=== PATIENT | male | born 1985 | race Caucasian/White ===

== ENCOUNTER 2019-06-29 23:21 | Inpatient (IN) | payer OTHER ==
[2019-06-29 23:42] VITALS: BMI 24.2
--- NOTE | 2019-06-30 01:29 | HP ---
"COWS - Scale Resting Pulse: 0= [place] 80 or Below Sweatin=Flushed/Facial Moisture Restless Observation: 1= Difficult to Sit Still Pupil Size: 2= Moderately Dilated (Pupils = 4 mm) Bone or Joint Aches: 1= Mild Discomfort Runny Nose/ Eye Tearin= Runny Nose/Eyes GI Upset > 30mins: 1= Stomach Cramp Tremor Observation: 2= Slight Tremor Visible Yawning Observation: 0= None Anxiety or Irritability: 2=Irritable/Anxious Goose Flesh Skin: 0=Smooth Skin COWS Score: 13 CIWA Score - Admission Criteria [facility] Guidelines: Admission for Medically Managed Detox: Requires at least one of the followin. CIWA greater than 12 2. Seizures within the past 24 hours 3. Delirium tremens within the past 24 hours 4. Hallucinations within the past 24 hours 5. Acute intervention needed for co occurring medical disorder 6. Acute intervention needed for co occurring psychiatric disorder 7. Severe withdrawal that cannot be handled at a lower level of care (continued vomiting, continued diarrhea, abnormal vital signs) requiring intravenous medication and/or fluids 8. Admission ROS [facility] Chief Complaint: I'M HERE BECAUSE iI DON'T WANT TO USE ANY MORE DRUGS. Allergies/Adverse Reactions: Allergies Allergy/AdvReac Type Severity Reaction Status Date / Time No Known Allergies Allergy Verified 06/29/19 23:38 History of Present Illness: First admission for this 33 yo presents w/ opioid withdrawal seeking detox. UTox: + THC/FEN/MOP BEVERLY: 0.0 Denies seizures or overdose. Heroin use began at age 10. States has increased use and now using 14-15 bags/ IV x 1 years. No narcan kit. Marijuana use began at age 10. Uses every day. Nicotine use began at age 10. Smokes 1 PPD. Denies alcohol use. PMHX: Hepatitis C (no meds) MHHx: Depression and bipolar. States takes meds but unsure name. Non-compliant when uses drugs. Denies thoughts of harming self or others. SHx: Lives in a fci. Unemployed. Denies legal problems. Search Terms: Edy Garcia, 1985 Search Date: 06/30/2019 01:27:31 AM The Drug Utilization Report below displays all of the controlled substance prescriptions, if any, that your patient has filled in the last twelve months. The information displayed on this report is compiled from pharmacy submissions to the Department, and accurately reflects the information as submitted by the pharmacies. This report was requested by: Fay Lujan | Reference #: [id number] There are no results for the search terms that you entered. Exam Limitations: No Limitations - Ebola screening Have you traveled outside of the country in the last 21 days: No (N) Have you had contact with anyone from an Ebola affected area: No Have you been sick,other than usual withdrawal symptoms: No Do you have a fever: No - Review of Systems Constitutional: Chills EENT: reports: Nose Congestion Respiratory: reports: No Symptoms reported Cardiac: reports: No Symptoms Reported GI: reports: Nausea, Indigestion (Heart burn), Abdominal cramping : reports: No Symptoms Reported Musculoskeletal: reports: Back Pain (r/t withdrawal) Integumentary: reports: Lesions (States picks skin when uses drugs) Neuro: reports: Tremors Endocrine: reports: Increased Thirst Hematology: reports: No Symptoms Reported Psychiatric: reports: Mood/Affect Appropiate, Orientated x3, Agitated, Anxious, Depressed ( Denies thoughts of harming self or others.) Patient History - PPD History Previous Implant?: No PPD to be Administered?: Yes - Smoking Cessation Smoking history: Current every day smoker Have you smoked in the past 12 months: Yes Aproximately how many cigarettes per day: 20 Hx Chewing Tobacco Use: No Initiated information on smoking cessation: Yes 'Breaking Loose' booklet given: 06/30/19 - Substance & Tx. History Hx Alcohol Use: No Hx Substance Use: Yes Substance Use Type: Heroin, Marijuana Hx Substance Use Treatment: Yes (detox, rehab (in [place])) - Substances abused Heroin Substance route: Injection Frequency: Daily Amount used: 15 bags Age of first use: 10 Date of last use: 06/29/19 Admission Physical Exam BHS - Vital Signs Vital Signs: Vital Signs - 24 hr 06/29/19 06/30/19 23:36 00:55 Temperature 97.7 F 97.7 F Pulse Rate 76 76 Respiratory 16 16 Rate Blood Pressure 125/80 125/80 - Physical General Appearance: Yes: Nourished, Mild Distress, Tremorous (Mild tremors), Sweating (Increased facial moisture), Anxious HEENTM: Yes: EOMI, Hearing grossly Normal, Normocephalic, Normal Voice, STEPHANY ( Pupils = 4 mm), Pharynx Normal Respiratory: Yes: Lungs Clear (Pulse Ox = 97), Normal Breath Sounds, No Respiratory Distress Neck: Yes: No masses,lesions,Nodules, Supple Breast: Yes: Breast Exam Deferred Cardiology: Yes: Regular Rhythm, Regular Rate, S1, S2 Abdominal: Yes: Non Tender, Flat, Soft, Increased Bowel Sounds Genitourinary: Yes: Within Normal Limits Back: Yes: Normal Inspection Musculoskeletal: Yes: full range of Motion, Gait Steady Extremities: Yes: Normal Capillary Refill, Tremors 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 No increased warmth, swelling, or erythema.), Other (Scattered circular scratched lesions on arms and back) Lymphatic: Yes: Within Normal Limits - Diagnostic (1) Excoriation (skin-picking) disorder Current Visit: Yes Status: Chronic Comment: r/t opioid use (2) Opioid dependence with withdrawal Current Visit: Yes Status: Acute Comment: IVDU w/ track connor (3) Nicotine dependence, unspecified, uncomplicated Current Visit: Yes Status: Chronic Qualifiers: Nicotine product type: cigarettes Qualified Code(s): F17.210 - Nicotine dependence, cigarettes, uncomplicated (4) Cannabis dependence, uncomplicated Current Visit: Yes Status: Acute (5) History of hepatitis C Current Visit: Yes Status: Chronic Comment: untreated Cleared for Admission [facility] - Detox or Rehab [facility] Level of Care: Medically Managed Detox Regimen/Protocol: Methadone Claeared for Rehab Admission: No Breathalyzer - Breathalyzer Breathalyzer: 0 Urine Drug Screen - Test Device Lot number: [id number] Expiration date: 03/10/21 - Control Is test valid?: Yes - Results Drug screen NEGATIVE: No Urine drug screen results: THC-Marijuana, FEN-Fentanyl, MOP-Opiates Inpatient Rehab Admission - Rehab Decision to Admit Inpatient rehab admission?: No"
[2019-06-30] MEDS ORDERED: MAGNESIUM HYDROX 2400MG/30ML ORAL SUSPENSION 30 ML CUP PO PRN (02:00)
[2019-06-30] MEDS ORDERED: cloNIDine HCL 0.1 MG TABLET PO PRN (02:00)
[2019-06-30] MEDS ORDERED: NICOTINE POLACRILEX 2 MG GUM BUC PRN (02:00)
[2019-06-30] MEDS ORDERED: METHADONE HCL 10 MG TABLET (FOR DETOX USE ONLY) PO ONE (02:00)
[2019-06-30] MEDS ORDERED: MENTHOL/PHENOL 1 EACH UD MM PRN (02:00)
[2019-06-30] MEDS ORDERED: MAGNESIUM CITRATE 300 ML BOTTLE PO PRN (02:00)
[2019-06-30] MEDS ORDERED: ACETAMINOPHEN 325 MG TABLET (FP) PO PRN ×2 (02:00)
[2019-06-30] MEDS ORDERED: BISMUTH SUBSALICYLATE 524 MG/30 ML UD PO PRN (02:00)
[2019-06-30] MEDS ORDERED: MAG HYDROX/AL HYDROX/SIMETH 30 ML UNIT-DOSE CUP PO PRN (02:00)
[2019-06-30] MEDS ORDERED: IBUPROFEN 400 MG TABLET (FP) PO PRN (02:00)
[2019-06-30] MEDS ORDERED: BACITRACIN 15 GM TUBE TOPICAL OINTMENT TP PRN (02:14)
--- NOTE | 2019-06-30 09:39 | PN ---
BHS COWS - Scale Resting Pulse: 0= [place] 80 or Below Sweatin= Chills/Flushing Restless Observation: 0= Sits Still Pupil Size: 1= Pupils >than Normal Bone or Joint Aches: 1= Mild Discomfort Runny Nose/ Eye Tearin= Nasal Congestion GI Upset > 30mins: 0= None Tremor Observation of Outstretched Hands: 2= Slight Tremor Visible Yawning Observation: 1= 1-2x During Session Anxiety or Irritability: 2=Irritable/Anxious Goose Flesh Skin: 3=Piloerection COWS Score: 12 BHS Progress Note (SOAP) Subjective: 33 years old male admitted on 06/30/19 for opiate withdrawal sx management treated with methadone detox regimen limited Spanish prefers direct conversation with staff follow direction alert speech clearly coherently good eye contact Objective: 06/30/19 09:38 Vital Signs Temperature 98.8 F 06/30/19 09:13 Pulse Rate 70 06/30/19 09:13 Respiratory Rate 18 06/30/19 09:13 Blood Pressure 116/66 06/30/19 09:13 O2 Sat by Pulse Oximetry (%) 06/30/19 09:38 lab pending Assessment: 06/30/19 09:38 opiate withdrawal sx Plan: continue methadone detox regimen
[2019-06-30] MEDS ORDERED: METHADONE HCL 10 MG TABLET PO ONE (10:00)
[2019-06-30] MEDS: NICOTINE 21 MG/24 HOURS TOPICAL PATCH TD SCH (10:04)
[2019-06-30] MEDS: PRENATAL VITAMINS W/ FOLIC ACID TABLET (FP) PO SCH (10:04)
--- NOTE | 2019-06-30 10:37 | EKG ---
Test Reason : Blood Pressure : / mmHG Vent. Rate : 064 BPM Atrial Rate : 064 BPM P-R Int : 128 ms QRS Dur : 090 ms QT Int : 404 ms P-R-T Axes : 058 079 060 degrees QTc Int : 416 ms NORMAL SINUS RHYTHM POSSIBLE LEFT ATRIAL ENLARGEMENT EARLY REPOLARIZATION BORDERLINE ECG NO PREVIOUS ECGS AVAILABLE Confirmed by BEBETO DRISCOLL, YURY ([id number]) on 06/30/2019 10:36:48 AM Referred By: Abel Mejia Confirmed By:YURY TATE MD
--- NOTE | 2019-06-30 13:25 | CONSULT ---
[facility] Psychiatric Consult - Data Date of interview: 06/30/19 Admission source: [facility] Identifying data: First admission to [facility] for this 33 y/o [place] male self-referred for detoxification (ADA issues : heroin, cannabis, nicotine). Interviewed at [address] [place] [address]. 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 Substance Abuse History: Discussed with patient. Details in current [facility] as follows : Smoking history: Current every day smoker. Have you smoked in the past 12 months: Yes. Aproximately how many cigarettes per day: 20. Hx Chewing Tobacco Use: No. Initiated information on smoking cessation: Yes. 'Breaking Loose' booklet given: 06/30/19. - Substance & Tx. History. Hx Alcohol Use: No. Hx Substance Use: Yes. Substance Use Type: Heroin, Marijuana. Hx Substance Use Treatment: Yes (detox, rehab (in [place])). - Substances abused. Heroin. Substance route: Injection. Frequency: Daily. Amount used: 15 bags. Age of first use: 10. Date of last use: 06/29/19 Medical History: Hepatitis C. Psychiatric History: Patient endorses one psychiatric hospitalization ([facility]) in 2017. Diagnosed with Bipolar Disorder (self-report). Mr Garcia indicates that he has not been on psychotropic medications for months. " I just got an appointment to see a psychiatrist at [facility] on Friday (07/02/19). I have not taken medications for a while ". No recent OPD care. Patient report a remote history of suicide attempt (superficial cutting). Physical/Sexual Abuse/Trauma History: Patient denies. Additional Comment: Urine drug screen results: THC-Marijuana, FEN-Fentanyl, MOP- Opiates. Noted. Mental Status Exam - Mental Status Exam Alert and Oriented to: Time, Place, Person Cognitive Function: Good Patient Appearance: Well Groomed Mood: Nervous, Withdrawn Affect: Mood Congruent, Constricted Patient Behavior: Fatigued, Appropriate, Cooperative Speech Pattern: Clear (in english) Voice Loudness: Normal Thought Process: Goal Oriented Thought Disorder: Not Present Hallucinations: Denies Suicidal Ideation: Denies Homicidal Ideation: Denies Insight/Judgement: Poor Sleep: Well Appetite: Good Muscle strength/Tone: Normal Gait/Station: Normal Psychiatric Findings - Problem List ([place] 1, 2,3) (1) Opioid dependence with withdrawal Current Visit: Yes Status: Acute Comment: IVDU w/ track connor (2) Cannabis dependence, uncomplicated Current Visit: Yes Status: Chronic (3) Nicotine dependence, unspecified, uncomplicated Current Visit: Yes Status: Chronic Qualifiers: Nicotine product type: cigarettes Qualified Code(s): F17.210 - Nicotine dependence, cigarettes, uncomplicated (4) Substance induced mood disorder Current Visit: Yes Status: Chronic - Initial Treatment Plan Initial Treatment Plan: Psychoeducation. Sleep hygiene. Detoxification. Support. Observation.
[2019-06-30] MEDS: BACITRACIN 15 GM TUBE TOPICAL OINTMENT TP SCH ×2 (16:04→21:52)
[2019-06-30 21:24] LABS: EPI CELLS 1.9 /HPF (0-5/HPF); HYALINE CASTS 13 /lpf (0-8); URINE APPEARANCE CLEAR; URINE BACTERIA 2.7 /hpf (NEGATIVE); URINE BILIRUBIN NEGATIVE (NEGATIVE); URINE COLOR YELLOW; URINE GLUCOSE (UA) NEGATIVE (NEGATIVE); URINE KETONE NEGATIVE (NEGATIVE); URINE LEUK ESTERASE TRACE (NEGATIVE); URINE NITRITE NEGATIVE (NEGATIVE); URINE PROTEIN NEGATIVE (NEGATIVE); URINE RBC 0 /hpf (0-4); URINE UROBILINOGEN 0.2 mg/dL (0.2-1.0); URINE WBC 5 /hpf (0-5)
[2019-06-30] MEDS: THIAMINE HCL 100 MG TABLET (FP) PO SCH (21:52)
[2019-06-30] MEDS: clonazePAM 0.5 MG TABLET PO PRN (21:53)
[2019-06-30] MEDS: METHOCARBAMOL 500 MG TABLET PO PRN (21:54)
[2019-06-30] MEDS: MELATONIN 5 MG TABLETS PO PRN (21:54)
[2019-07-01] MEDS ORDERED: METHADONE HCL 10 MG TABLET (FOR DETOX USE ONLY) ONE (08:56)
[2019-07-01] MEDS ORDERED: METHADONE HCL 5 MG TABLET (FOR DETOX USE ONLY) ONE (08:57)
[2019-07-01 09:41] LABS: HEMATOCRIT 42.8 % (35.4-49); HEMOGLOBIN 14.7 GM/dL (11.7-16.9); MCH 31.7 pg (25.7-33.7); MCHC 34.4 g/dl (32.0-35.9); MEAN CELL VOLUME 92.3 fl (80-96); MEAN PLT VOLUME 9.1 fl (7.5-11.1); PLATELET COUNT 217 K/MM3 (134-434); RBC 4.64 M/mm3 (4.00-5.60); RDW 13.7 % (11.9-15.9); WHITE BLOOD COUNT 4.6 K/mm3 (4.0-10.0)
[2019-07-01 09:58] LABS: BILIRUBIN,TOTAL 0.8 mg/dL (0.2-1); BLOOD UREA NITROGEN 9.5 mg/dL (7-18); CALCIUM 8.9 mg/dL (8.5-10.1); POTASSIUM 4.3 mmol/L (3.5-5.1); TOT PROT 7.5 g/dl (6.4-8.2)
[2019-07-01] MEDS ORDERED: METHADONE (DETOX) 20 MG, METHADONE (DETOX) 5 MG PO ONE (10:00)
[2019-07-01] MEDS: BACITRACIN 15 GM TUBE TOPICAL OINTMENT TP SCH ×2 (10:03→22:01)
[2019-07-01] MEDS: PRENATAL VITAMINS W/ FOLIC ACID TABLET (FP) PO SCH (10:03)
[2019-07-01] MEDS: NICOTINE 21 MG/24 HOURS TOPICAL PATCH TD SCH (10:05)
--- NOTE | 2019-07-01 10:51 | PN ---
BHS COWS - Scale Resting Pulse: 0= [place] 80 or Below Sweatin= Chills/Flushing Restless Observation: 0= Sits Still Pupil Size: 1= Pupils >than Normal Bone or Joint Aches: 1= Mild Discomfort Runny Nose/ Eye Tearin= None GI Upset > 30mins: 1= Stomach Cramp Tremor Observation of Outstretched Hands: 1= Tremor [place], Not Seen Yawning Observation: 1= 1-2x During Session Anxiety or Irritability: 2=Irritable/Anxious Goose Flesh Skin: 3=Piloerection COWS Score: 11 S Progress Note (SOAP) Subjective: 33 years old male admitted on06/30/19 for opiate withdrawal sx management treated with methadone detox regimen ate breakfast tolerated food and fluid well no trouble chewing swallowing food or liquid Objective: 07/01/19 10:48 Vital Signs Temperature 97.7 F 07/01/19 09:08 Pulse Rate 64 07/01/19 09:08 Respiratory Rate 18 07/01/19 09:08 Blood Pressure 110/71 07/01/19 09:08 O2 Sat by Pulse Oximetry (%) Laboratory Last Values WBC 4.6 K/mm3 (4.0-10.0) 07/01/19 07:40 RBC 4.64 M/mm3 (4.00-5.60) 07/01/19 07:40 Hgb 14.7 GM/dL (11.7-16.9) 07/01/19 07:40 Hct 42.8 % (35.4-49) 07/01/19 07:40 MCV 92.3 fl (80-96) 07/01/19 07:40 MCH 31.7 pg (25.7-33.7) 07/01/19 07:40 MCHC 34.4 g/dl (32.0-35.9) 07/01/19 07:40 RDW 13.7 % (11.9-15.9) 07/01/19 07:40 Plt Count 217 K/MM3 (134-434) 07/01/19 07:40 MPV 9.1 fl (7.5-11.1) 07/01/19 07:40 Sodium 138 mmol/L (136-145) 07/01/19 07:40 Potassium 4.3 mmol/L (3.5-5.1) 07/01/19 07:40 Chloride 104 mmol/L (98-107) 07/01/19 07:40 Carbon Dioxide 31 mmol/L (21-32) 07/01/19 07:40 Anion Gap 3 MMOL/L (8-16) L 07/01/19 07:40 BUN 9.5 mg/dL (7-18) 07/01/19 07:40 Creatinine 1.0 mg/dL (0.55-1.3) 07/01/19 07:40 Est GFR (CKD-EPI)AfAm 112.51 07/01/19 07:40 Est GFR (CKD-EPI)NonAf 97.08 07/01/19 07:40 Random Glucose 89 mg/dL (74-106) 07/01/19 07:40 Calcium 8.9 mg/dL (8.5-10.1) 07/01/19 07:40 Total Bilirubin 0.8 mg/dL (0.2-1) 07/01/19 07:40 AST 127 U/L (15-37) H 07/01/19 07:40 ALT 302 U/L (13-61) H 07/01/19 07:40 Alkaline Phosphatase 96 U/L (45-117) 07/01/19 07:40 Total Protein 7.5 g/dl (6.4-8.2) 07/01/19 07:40 Albumin 4.0 g/dl (3.4-5.0) 07/01/19 07:40 Urine Color Yellow 06/30/19 21:10 Urine Appearance Clear 06/30/19 21:10 Urine pH 8.0 (5.0-8.0) 06/30/19 21:10 Ur Specific [place] 1.017 (1.010-1.035) 06/30/19 21:10 Urine Protein Negative (NEGATIVE) 06/30/19 21:10 Urine Glucose (UA) Negative (NEGATIVE) 06/30/19 21:10 Urine Ketones Negative (NEGATIVE) 06/30/19 21:10 Urine Blood Negative (NEGATIVE) 06/30/19 21:10 Urine Nitrite Negative (NEGATIVE) 06/30/19 21:10 Urine Bilirubin Negative (NEGATIVE) 06/30/19 21:10 Urine Urobilinogen 0.2 mg/dL (0.2-1.0) 06/30/19 21:10 Ur Leukocyte Esterase Trace (NEGATIVE) 06/30/19 21:10 Urine WBC (Auto) 5 /hpf (0-5) 06/30/19 21:10 Urine RBC (Auto) 0 /hpf (0-4) 06/30/19 21:10 Urine Casts (Auto) 13 /lpf (0-8) 06/30/19 21:10 U Epithel Cells (Auto) 1.9 /HPF (0-5/HPF) 06/30/19 21:10 Urine Bacteria (Auto) 2.7 /hpf (NEGATIVE) 06/30/19 21:10 lab noted Assessment: 07/01/19 10:50 opiate withdrawal sx Plan: continue methadone detox regimen
[2019-07-01] MEDS: THIAMINE HCL 100 MG TABLET (FP) PO SCH (22:02)
[2019-07-01] MEDS: MELATONIN 5 MG TABLETS PO PRN (22:03)
[2019-07-01] MEDS: clonazePAM 0.5 MG TABLET PO PRN (22:03)
[2019-07-01] MEDS: METHOCARBAMOL 500 MG TABLET PO PRN (22:03)
[2019-07-02] MEDS: NICOTINE 21 MG/24 HOURS TOPICAL PATCH TD SCH (09:26)
[2019-07-02] MEDS: PRENATAL VITAMINS W/ FOLIC ACID TABLET (FP) PO SCH (09:27)
[2019-07-02] MEDS: clonazePAM 0.5 MG TABLET PO PRN (09:27)
[2019-07-02] MEDS: BACITRACIN 15 GM TUBE TOPICAL OINTMENT TP SCH ×2 (09:27→22:14)
[2019-07-02] MEDS ORDERED: METHADONE HCL 10 MG TABLET (FOR DETOX USE ONLY) PO ONE (10:00)
--- NOTE | 2019-07-02 12:53 | PN ---
S COWS - Scale Resting Pulse: 0= [place] 80 or Below Sweatin= No chills or Flushing Restless Observation: 1= Difficult to Sit Still Pupil Size: 1= Pupils >than Normal Bone or Joint Aches: 1= Mild Discomfort Runny Nose/ Eye Tearin= Runny Nose/Eyes GI Upset > 30mins: 1= Stomach Cramp Tremor Observation of Outstretched Hands: 1= Tremor [place], Not Seen Yawning Observation: 0= None Anxiety or Irritability: 2=Irritable/Anxious Goose Flesh Skin: 0=Smooth Skin COWS Score: 9 BHS Progress Note (SOAP) Subjective: alert,irritable,anxious,interrupted sleep,tremor,pain in the body Objective: 07/02/19 12:51 Vital Signs Temperature 98.2 F 07/02/19 09:21 Pulse Rate 73 07/02/19 09:21 Respiratory Rate 18 07/02/19 09:21 Blood Pressure 115/74 07/02/19 09:21 O2 Sat by Pulse Oximetry (%) 07/02/19 12:52 Laboratory Last Values WBC 4.6 K/mm3 (4.0-10.0) 07/01/19 07:40 RBC 4.64 M/mm3 (4.00-5.60) 07/01/19 07:40 Hgb 14.7 GM/dL (11.7-16.9) 07/01/19 07:40 Hct 42.8 % (35.4-49) 07/01/19 07:40 MCV 92.3 fl (80-96) 07/01/19 07:40 MCH 31.7 pg (25.7-33.7) 07/01/19 07:40 MCHC 34.4 g/dl (32.0-35.9) 07/01/19 07:40 RDW 13.7 % (11.9-15.9) 07/01/19 07:40 Plt Count 217 K/MM3 (134-434) 07/01/19 07:40 MPV 9.1 fl (7.5-11.1) 07/01/19 07:40 Sodium 138 mmol/L (136-145) 07/01/19 07:40 Potassium 4.3 mmol/L (3.5-5.1) 07/01/19 07:40 Chloride 104 mmol/L (98-107) 07/01/19 07:40 Carbon Dioxide 31 mmol/L (21-32) 07/01/19 07:40 Anion Gap 3 MMOL/L (8-16) L 07/01/19 07:40 BUN 9.5 mg/dL (7-18) 07/01/19 07:40 Creatinine 1.0 mg/dL (0.55-1.3) 07/01/19 07:40 Est GFR (CKD-EPI)AfAm 112.51 07/01/19 07:40 Est GFR (CKD-EPI)NonAf 97.08 07/01/19 07:40 Random Glucose 89 mg/dL (74-106) 07/01/19 07:40 Calcium 8.9 mg/dL (8.5-10.1) 07/01/19 07:40 Total Bilirubin 0.8 mg/dL (0.2-1) 07/01/19 07:40 AST 127 U/L (15-37) H 07/01/19 07:40 ALT 302 U/L (13-61) H 07/01/19 07:40 Alkaline Phosphatase 96 U/L (45-117) 07/01/19 07:40 Total Protein 7.5 g/dl (6.4-8.2) 07/01/19 07:40 Albumin 4.0 g/dl (3.4-5.0) 07/01/19 07:40 Urine Color Yellow 06/30/19 21:10 Urine Appearance Clear 06/30/19 21:10 Urine pH 8.0 (5.0-8.0) 06/30/19 21:10 Ur Specific [place] 1.017 (1.010-1.035) 06/30/19 21:10 Urine Protein Negative (NEGATIVE) 06/30/19 21:10 Urine Glucose (UA) Negative (NEGATIVE) 06/30/19 21:10 Urine Ketones Negative (NEGATIVE) 06/30/19 21:10 Urine Blood Negative (NEGATIVE) 06/30/19 21:10 Urine Nitrite Negative (NEGATIVE) 06/30/19 21:10 Urine Bilirubin Negative (NEGATIVE) 06/30/19 21:10 Urine Urobilinogen 0.2 mg/dL (0.2-1.0) 06/30/19 21:10 Ur Leukocyte Esterase Trace (NEGATIVE) 06/30/19 21:10 Urine WBC (Auto) 5 /hpf (0-5) 06/30/19 21:10 Urine RBC (Auto) 0 /hpf (0-4) 06/30/19 21:10 Urine Casts (Auto) 13 /lpf (0-8) 06/30/19 21:10 U Epithel Cells (Auto) 1.9 /HPF (0-5/HPF) 06/30/19 21:10 Urine Bacteria (Auto) 2.7 /hpf (NEGATIVE) 06/30/19 21:10 RPR Titer Nonreactive (NONREACTIVE) 07/01/19 07:40 Assessment: 07/02/19 12:52 withdrawal symptom Plan: continue detox,repeat alt,ast,inr in am/d/c tylenol
[2019-07-02] MEDS: THIAMINE HCL 100 MG TABLET (FP) PO SCH (22:13)
[2019-07-03 09:27] VITALS: BP 118/83; PULSE 71; TEMP 97.9
[2019-07-03] MEDS ORDERED: METHADONE HCL 10 MG TABLET (FOR DETOX USE ONLY) ONE (09:35)
[2019-07-03] MEDS ORDERED: METHADONE HCL 5 MG TABLET (FOR DETOX USE ONLY) ONE (09:36)
[2019-07-03] MEDS ORDERED: METHADONE (DETOX) 10 MG, METHADONE (DETOX) 5 MG PO ONE (10:00)
[2019-07-03] MEDS: NICOTINE 21 MG/24 HOURS TOPICAL PATCH TD SCH (10:18)
[2019-07-03] MEDS: BACITRACIN 15 GM TUBE TOPICAL OINTMENT TP SCH (10:18)
[2019-07-03] MEDS: PRENATAL VITAMINS W/ FOLIC ACID TABLET (FP) PO SCH (10:18)
--- NOTE | 2019-07-03 10:44 | PN ---
BHS COWS - Scale Resting Pulse: 0= [place] 80 or Below Sweatin= Chills/Flushing Restless Observation: 1= Difficult to Sit Still Pupil Size: 0= Normal to Room Light Bone or Joint Aches: 2= Severe Diffuse Aches Runny Nose/ Eye Tearin= None GI Upset > 30mins: 0= None Tremor Observation of Outstretched Hands: 0= None Yawning Observation: 1= 1-2x During Session Anxiety or Irritability: 1=Feels Anxious/Irritable Goose Flesh Skin: 0=Smooth Skin COWS Score: 6 BHS Progress Note (SOAP) Subjective: c/o sweats, muscle aches, and anxiety. Objective: 07/03/19 10:43 Lab Results WBC 4.6 K/mm3 (4.0-10.0) 07/01/19 07:40 RBC 4.64 M/mm3 (4.00-5.60) 07/01/19 07:40 Hgb 14.7 GM/dL (11.7-16.9) 07/01/19 07:40 Hct 42.8 % (35.4-49) 07/01/19 07:40 MCV 92.3 fl (80-96) 07/01/19 07:40 MCHC 34.4 g/dl (32.0-35.9) 07/01/19 07:40 RDW 13.7 % (11.9-15.9) 07/01/19 07:40 Plt Count 217 K/MM3 (134-434) 07/01/19 07:40 Sodium 138 mmol/L (136-145) 07/01/19 07:40 Potassium 4.3 mmol/L (3.5-5.1) 07/01/19 07:40 Chloride 104 mmol/L (98-107) 07/01/19 07:40 Carbon Dioxide 31 mmol/L (21-32) 07/01/19 07:40 Anion Gap 3 MMOL/L (8-16) L 07/01/19 07:40 BUN 9.5 mg/dL (7-18) 07/01/19 07:40 Creatinine 1.0 mg/dL (0.55-1.3) 07/01/19 07:40 Random Glucose 89 mg/dL (74-106) 07/01/19 07:40 Calcium 8.9 mg/dL (8.5-10.1) 07/01/19 07:40 Laboratory Last Values WBC 4.6 K/mm3 (4.0-10.0) 07/01/19 07:40 RBC 4.64 M/mm3 (4.00-5.60) 07/01/19 07:40 Hgb 14.7 GM/dL (11.7-16.9) 07/01/19 07:40 Hct 42.8 % (35.4-49) 07/01/19 07:40 MCV 92.3 fl (80-96) 07/01/19 07:40 MCH 31.7 pg (25.7-33.7) 07/01/19 07:40 MCHC 34.4 g/dl (32.0-35.9) 07/01/19 07:40 RDW 13.7 % (11.9-15.9) 07/01/19 07:40 Plt Count 217 K/MM3 (134-434) 07/01/19 07:40 MPV 9.1 fl (7.5-11.1) 07/01/19 07:40 Sodium 138 mmol/L (136-145) 07/01/19 07:40 Potassium 4.3 mmol/L (3.5-5.1) 07/01/19 07:40 Chloride 104 mmol/L (98-107) 07/01/19 07:40 Carbon Dioxide 31 mmol/L (21-32) 07/01/19 07:40 Anion Gap 3 MMOL/L (8-16) L 07/01/19 07:40 BUN 9.5 mg/dL (7-18) 07/01/19 07:40 Creatinine 1.0 mg/dL (0.55-1.3) 07/01/19 07:40 Est GFR (CKD-EPI)AfAm 112.51 07/01/19 07:40 Est GFR (CKD-EPI)NonAf 97.08 07/01/19 07:40 Random Glucose 89 mg/dL (74-106) 07/01/19 07:40 Calcium 8.9 mg/dL (8.5-10.1) 07/01/19 07:40 Total Bilirubin 0.8 mg/dL (0.2-1) 07/01/19 07:40 AST 127 U/L (15-37) H 07/01/19 07:40 ALT 302 U/L (13-61) H 07/01/19 07:40 Alkaline Phosphatase 96 U/L (45-117) 07/01/19 07:40 Total Protein 7.5 g/dl (6.4-8.2) 07/01/19 07:40 Albumin 4.0 g/dl (3.4-5.0) 07/01/19 07:40 Urine Color Yellow 06/30/19 21:10 Urine Appearance Clear 06/30/19 21:10 Urine pH 8.0 (5.0-8.0) 06/30/19 21:10 Ur Specific [place] 1.017 (1.010-1.035) 06/30/19 21:10 Urine Protein Negative (NEGATIVE) 06/30/19 21:10 Urine Glucose (UA) Negative (NEGATIVE) 06/30/19 21:10 Urine Ketones Negative (NEGATIVE) 06/30/19 21:10 Urine Blood Negative (NEGATIVE) 06/30/19 21:10 Urine Nitrite Negative (NEGATIVE) 06/30/19 21:10 Urine Bilirubin Negative (NEGATIVE) 06/30/19 21:10 Urine Urobilinogen 0.2 mg/dL (0.2-1.0) 06/30/19 21:10 Ur Leukocyte Esterase Trace (NEGATIVE) 06/30/19 21:10 Urine WBC (Auto) 5 /hpf (0-5) 06/30/19 21:10 Urine RBC (Auto) 0 /hpf (0-4) 06/30/19 21:10 Urine Casts (Auto) 13 /lpf (0-8) 06/30/19 21:10 U Epithel Cells (Auto) 1.9 /HPF (0-5/HPF) 06/30/19 21:10 Urine Bacteria (Auto) 2.7 /hpf (NEGATIVE) 06/30/19 21:10 RPR Titer Nonreactive (NONREACTIVE) 07/01/19 07:40 Labs noted. Assessment: 07/03/19 10:44 AOX3, in no acute respiratory distress. Full ROM, ambulating in the unit. Withdrawal symptoms. Plan: continue detox.
[2019-07-03 10:50] LABS: SGOT/AST 119 U/L (15-37); SGPT/ALT 265 U/L (13-61)
[2019-07-03 10:54] LABS: INR 1.13 (0.83-1.09); PROTHROMBIN TIME (PATIENT) 13.3 SEC (9.7-13.0)
--- NOTE | 2019-07-03 16:07 | DS ---
[facility] Detox Discharge Summary Admission Date: 06/30/19 Discharge Date: 07/03/19 (Left AMA) - History Present History: Opioid Dependence Additional Comments: Pt left AMA. pt did not complete the detox protocol. Pt states he has to go and take care of something. An attempt to let pt stay and complete the detox protocol failed. Pt is encouraged to follow-up with [facility] outpatient program and also to follow-up with his pmd. Pt verbalized understanding. Pt is alert and oriented x3 and in no respiratory distress. Pertinent Past History: H/O heroin use disorder. - Physical Exam Results Vital Signs: Vital Signs Temperature 97.9 F 07/03/19 09:26 Pulse Rate 71 07/03/19 09:26 Respiratory Rate 18 07/03/19 09:26 Blood Pressure 118/83 07/03/19 09:26 O2 Sat by Pulse Oximetry (%) Vital Signs 07/03/19 09:26 Temperature 97.9 F Pulse Rate 71 Respiratory 18 Rate Blood Pressure 118/83 Laboratory Last Values WBC 4.6 K/mm3 (4.0-10.0) 07/01/19 07:40 RBC 4.64 M/mm3 (4.00-5.60) 07/01/19 07:40 Hgb 14.7 GM/dL (11.7-16.9) 07/01/19 07:40 Hct 42.8 % (35.4-49) 07/01/19 07:40 MCV 92.3 fl (80-96) 07/01/19 07:40 MCH 31.7 pg (25.7-33.7) 07/01/19 07:40 MCHC 34.4 g/dl (32.0-35.9) 07/01/19 07:40 RDW 13.7 % (11.9-15.9) 07/01/19 07:40 Plt Count 217 K/MM3 (134-434) 07/01/19 07:40 MPV 9.1 fl (7.5-11.1) 07/01/19 07:40 PT with INR 13.30 SEC (9.7-13.0) H 07/03/19 07:40 INR 1.13 (0.83-1.09) H 07/03/19 07:40 Sodium 138 mmol/L (136-145) 07/01/19 07:40 Potassium 4.3 mmol/L (3.5-5.1) 07/01/19 07:40 Chloride 104 mmol/L (98-107) 07/01/19 07:40 Carbon Dioxide 31 mmol/L (21-32) 07/01/19 07:40 Anion Gap 3 MMOL/L (8-16) L 07/01/19 07:40 BUN 9.5 mg/dL (7-18) 07/01/19 07:40 Creatinine 1.0 mg/dL (0.55-1.3) 07/01/19 07:40 Est GFR (CKD-EPI)AfAm 112.51 07/01/19 07:40 Est GFR (CKD-EPI)NonAf 97.08 07/01/19 07:40 Random Glucose 89 mg/dL (74-106) 07/01/19 07:40 Calcium 8.9 mg/dL (8.5-10.1) 07/01/19 07:40 Total Bilirubin 0.8 mg/dL (0.2-1) 07/01/19 07:40 AST 119 U/L (15-37) H 07/03/19 07:40 ALT 265 U/L (13-61) H 07/03/19 07:40 Alkaline Phosphatase 96 U/L (45-117) 07/01/19 07:40 Total Protein 7.5 g/dl (6.4-8.2) 07/01/19 07:40 Albumin 4.0 g/dl (3.4-5.0) 07/01/19 07:40 Urine Color Yellow 06/30/19 21:10 Urine Appearance Clear 06/30/19 21:10 Urine pH 8.0 (5.0-8.0) 06/30/19 21:10 Ur Specific [place] 1.017 (1.010-1.035) 06/30/19 21:10 Urine Protein Negative (NEGATIVE) 06/30/19 21:10 Urine Glucose (UA) Negative (NEGATIVE) 06/30/19 21:10 Urine Ketones Negative (NEGATIVE) 06/30/19 21:10 Urine Blood Negative (NEGATIVE) 06/30/19 21:10 Urine Nitrite Negative (NEGATIVE) 06/30/19 21:10 Urine Bilirubin Negative (NEGATIVE) 06/30/19 21:10 Urine Urobilinogen 0.2 mg/dL (0.2-1.0) 06/30/19 21:10 Ur Leukocyte Esterase Trace (NEGATIVE) 06/30/19 21:10 Urine WBC (Auto) 5 /hpf (0-5) 06/30/19 21:10 Urine RBC (Auto) 0 /hpf (0-4) 06/30/19 21:10 Urine Casts (Auto) 13 /lpf (0-8) 06/30/19 21:10 U Epithel Cells (Auto) 1.9 /HPF (0-5/HPF) 06/30/19 21:10 Urine Bacteria (Auto) 2.7 /hpf (NEGATIVE) 06/30/19 21:10 RPR Titer Nonreactive (NONREACTIVE) 07/01/19 07:40 Labs noted. Pertinent Admission Physical Exam Findings: withdrawal symptoms. - Treatment Hospital Course: Detox Protocol Followed - Medication Discharge Medications: Ambulatory Orders Naloxone HCl [Narcan] 4 mg NS ASDIR PRN #1 spray 07/01/19 - Diagnosis (1) Opioid dependence with withdrawal Status: Acute (2) Cannabis dependence, uncomplicated Status: Chronic (3) Excoriation (skin-picking) disorder Status: Chronic (4) History of hepatitis C Status: Chronic (5) Nicotine dependence, unspecified, uncomplicated Status: Chronic Qualifiers: Nicotine product type: cigarettes Qualified Code(s): F17.210 - Nicotine dependence, cigarettes, uncomplicated - AMA Did Patient Leave Against Medical Advice: Yes
[2019-07-04] MEDS ORDERED: METHADONE HCL 10 MG TABLET (FOR DETOX USE ONLY) PO ONE (10:00)
[2019-07-05] MEDS ORDERED: METHADONE HCL 5 MG TABLET (FOR DETOX USE ONLY) PO ONE (06:00)
== END 2019-07-03 11:48 | disposition left against medical advice (07) | DRG 770 ==
LOC: YASAS 23:21 → Y3N 06-30 02:12
PROVIDERS: ADMIT Allergy & Immunology; ATTEND Allergy & Immunology
PROC: HZ2ZZZZ Detoxification Services for Substance Abuse Treatment (ICD-10-PCS; principal; 2019-06-30)
DX: F11.23 Opioid dependence with withdrawal (principal); F12.20 Cannabis dependence, uncomplicated; F17.210 Nicotine dependence, cigarettes, uncomplicated; F19.24 Other psychoactive substance dependence with psychoactive substance-induced mood disorder; F42.4 Excoriation (skin-picking) disorder; B18.2 Chronic viral hepatitis C
CPT/HCPCS: 36415; 80053; 81003; 84450; 84460; 85027; 85610; 86593; 93005; 93010